=== PATIENT | male | born 1945 | race Caucasian/White ===

== ENCOUNTER 2018-05-23 05:05 | Inpatient (IN) ==
--- NOTE | 2018-05-17 09:30 | PAT Medication Instructions ---
Medication Instructions Date of Service May 17, 2018 Home Medications aspirin [Aspirin Low Dose] 81 mg PO DAILY atenolol 50 mg PO BID calcium carbonate-vitamin D3 1 tab PO DAILY digoxin 250 mcg PO 1800 lisinopril 10 mg PO BID mirtazapine 7.5 mg PO DAILY PRN omega 4-tzr-hec-fish oil [Fish Oil] 1 cap PO DAILY omeprazole 20 mg PO QAM sertraline 100 mg PO BID simvastatin 20 mg PO PM Continue as directed aspirin [Aspirin Low Dose] 81 mg PO DAILY STOP taking 2 weeks before surgery (or as soon as possible if surgery is within 2 weeks) omega 4-xik-yqh-fish oil [Fish Oil] 1 cap PO DAILY DO NOT take the morning of surgery calcium carbonate-vitamin D3 1 tab PO DAILY lisinopril 10 mg PO BID Take morning of surgery With a small sip of water, OTHERWISE NOTHING TO EAT OR DRINK AFTER MIDNIGHT: atenolol 50 mg PO BID mirtazapine 7.5 mg PO DAILY PRN (if needed) omeprazole 20 mg PO QAM sertraline 100 mg PO BID Take evening before surgery atenolol 50 mg PO BID digoxin 250 mcg PO 1800 mirtazapine 7.5 mg PO DAILY PRN (if needed) sertraline 100 mg PO BID simvastatin 20 mg PO PM Other Notes If you have any questions please call us at [phone] or [phone] or [phone] or [phone]
--- NOTE | 2018-05-17 12:11 | Anesthesiology Consultation ---
Date of Service May 17, 2018 Assessment & Plan (1) Encounter for pre-operative examination: - Cardio= 05/11/18= "LOW risk for right hip surgery." - Okay to continue ASA perioperatively per surgeon* Note made of possible severe pulmonary HTN by last echo read - no recent record of right heart cath. Chart Review Chart Review: Acceptable Risk for Surgery and Patient seen in Pre Admission Testing Teaching & Discussion Pre-Anesthesia Teaching/Discussion Notes: Instructed NPO after midnight before surgery,except medications with 15 cc of water. Medication instructions provided according to the PAT guidelines. History Surgery Operation Date: 05/23/18 09:50 Proposed Procedures p Right Total Hip Arthroplasty Uncemented - Jordin Cortez MD Height/Weight Height: 5 ft 10 in Weight: 77.2 kg Allergies Allergy/AdvReac Type Severity Reaction Status Date / Time No Known Allergies Allergy Verified 05/16/18 08:44 Medications Home Medications Medication Instructions Recorded Confirmed Last Taken aspirin [Aspirin Low Dose] 81 mg PO DAILY 05/16/18 05/16/18 Unknown atenolol 50 mg PO BID 05/16/18 05/16/18 Unknown calcium carbonate-vitamin D3 1 tab PO DAILY 05/16/18 05/16/18 Unknown [Calcium 500 + D] digoxin 250 mcg PO 1800 05/16/18 05/16/18 Unknown lisinopril 10 mg PO BID 05/16/18 05/16/18 Unknown mirtazapine 7.5 mg PO DAILY PRN 05/16/18 05/16/18 Unknown omega 0-osj-esc-fish oil [Fish Oil] 1 cap PO DAILY 05/16/18 05/16/18 Unknown omeprazole 20 mg PO QAM 05/16/18 05/16/18 Unknown sertraline 100 mg PO BID 05/16/18 05/16/18 Unknown simvastatin 20 mg PO PM 05/16/18 05/16/18 Unknown Past Medical History Medical History Acid reflux CONTROLLED Aortic aneurysm TAA S/P "PATCH" REPAIR (1997); 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 Atrial fibrillation CHRONIC BPH (benign prostatic hyperplasia) CAD (coronary artery disease) NON-OBSTRUCTIVE Chronic back pain History of blood transfusion 1997 S/P TAA DISSECTION/REPAIR Hyperlipidemia Hypertension Migraine Osteoarthritis Post traumatic stress disorder Pulmonary HTN "SEVERE" 56MMHG PER 2017 ECHO* Past Surgical History Surgical History Dissection of descending aorta S/P "PATCH" REPAIR (1997) History of appendectomy History of cardiac cath 3+ YEARS AGO= NO STENTS History of cataract surgery LEFT History of herniorrhaphy INGUINAL HERNIA REPAIR History of tonsillectomy Past Anesthesia History No Hx of Anesthesia Complications and No Family Hx of Anesthesia Complications History of PONV No Motion Sickness Screening History of Motion Sickness: No Social History Smoking Status: Former smoker tobacco type: cigarettes Smoking cigarettes per day: 1 PPD X 4 YEARS Do You Dip or Chew Tobacco: No Smoking End Date: QUIT 47 YEARS AGO Hx Alcohol Use: No Hx Substance Use: No substance use type: does not use Exercise / Class Metabolic Activity III < 4 Walking/Shop/Light housework (USES CANE PRN) Review of Systems Patient denies chest pain, shortness of breath, cough, wheezing, palpitations. Physical Exam Vital Signs VITALS BP 165/81 P 53 TEMP 98.1 SP02 96%RA RESP 18 PHYSICAL Full neck and c-spine range of motion. Full TMJ range of motion. TMD 3 finger breaths Mallampati Score 1 Dentition: full dentures upper/lower, edentulous Lungs: clear throughout to auscultation Cardiac: irregular rhythm, regular rate, no murmurs noted Spine: normal Carotid arteries: negative bruit Extremities: no edema Testing Electrocardiogram Date: 05/17/18 A. fib with slow ventricular response at 56bpm. Voltage criteria for LVH. NS STA. Chest X-Ray Date: 05/17/18 Findings: + NAD Moderate cardiomegaly. Mild emphysematous change. No acute process. Echocardiogram Date: 12/08/16 LVEF 50-55%. Dyskinetic wall motion in septal segments (normal contractility in remaining clemons). Moderate LAE. Severe JENNIFER. Thickened MV without mitral annular calcification. Thickened AV. Severe pulmonary HTN (RVSP 56mmhg). Aortic root and ascending aorta appear dilated at 4.5cm. Cardiac Catheterization Date: 03/19/15 Normal appearing epicardial coronary arteries with dominant RCA but all vessels appear somewhat tortuous. EF 45%. 3+ AI. Large aortic aneurysm in ascending portion of root. Laboratory Results 05/17/18 12:25 05/17/18 11:25 Blood Type A Positive 05/17/18 12:25 Antibody Screen NEGATIVE 05/17/18 12:25 PT 11.6 Seconds (9.0-12.0) 05/17/18 12:25 INR 1.1 (0.9-1.1) 05/17/18 12:25 APTT 27.3 Seconds (21.0-31.0) 05/17/18 12:25 Hemoglobin A1c 5.8 % (4.5-5.6) H 05/17/18 12:25 Urine Color Yellow 05/17/18 12:25 Urine Appearance Clear (Clear) 05/17/18 12:25 Urine pH 5.0 (4.5-7.5) 05/17/18 12:25 Ur Specific [place] 1.016 (1.000-1.030) 05/17/18 12:25 Urine Protein Negative (Negative) 05/17/18 12:25 Urine Glucose (UA) Negative (Negative) 05/17/18 12:25 Urine Ketones Negative (Negative) 05/17/18 12:25 Urine Nitrite Negative (Negative) 05/17/18 12:25 Ur Leukocyte Esterase Trace (Negative) H 05/17/18 12:25 Urine WBC (Auto) 1-5 /hpf (0-5) 05/17/18 12:25 Urine RBC (Auto) 0-4 /hpf (0-4) 05/17/18 12:25 U Hyaline Cast (Auto) 0 /lpf (0-5) 05/17/18 12:25 U Epithel Cells (Auto) 0-5 /lpf (0-5) 05/17/18 12:25 Urine Bacteria (Auto) Negative (Negative) 05/17/18 12:25
[2018-05-17 12:47] LABS: Basophils # (auto) 0.04 K/uL (0-0.2); Basophils % (auto) 0.5 %; Eosinophils # (auto) 0.03 K/uL (0-0.5); Eosinophils % (auto) 0.4 %; Immature Granulocytes # (auto) 0.02 K/uL (0.00-0.02); Immature Granulocytes % (auto) 0.3 %; Lymphocytes # (auto) 1.76 K/uL (1.2-3.4); Lymphocytes % (auto) 22.9 %; Mean Corpuscular Volume 93.4 fL (80-100); Mean Platelet Volume 9.4 fL (7.4-10.4); Monocytes # (auto) 0.55 K/uL (0.11-0.59); Monocytes % (auto) 7.1 %; Neutrophils % (auto) 68.8 %; Platelet Count 150 K/uL (130-400); RDW Coefficient of Variation 13.1 % (11.5-14.5); RDW Standard Deviation 44.3 fL (36.4-46.3); Red Blood Count 5.03 M/uL (4.7-6.1)
[2018-05-17 12:49] LABS: Appearance Urine Clear (Clear); Bacteria Urine Automated Negative (Negative); Bilirubin Urine Negative (Negative); Blood Urine Negative (Negative); Cast Urine Automated 0 /lpf (0-5); Color Urine Yellow; Epithelial Cell Urine Auto 0-5 /lpf (0-5); Glucose Urine UA Negative (Negative); Ketones Urine Negative (Negative); Leukocyte Esterase Urine Trace (Negative); Nitrite Urine Negative (Negative); Protein Urine Negative (Negative); RBC Urine Automated 0-4 /hpf (0-4); Specific Gravity Urine 1.016 (1.000-1.030); Urobilinogen Urine Negative (Negative)
[2018-05-17 12:58] LABS: INR 1.1 (0.9-1.1); Partial Thromboplastin Time 27.3 Seconds (21.0-31.0); Prothrombin Time 11.6 Seconds (9.0-12.0)
--- NOTE | 2018-05-17 13:17 | XRay Report ---
XR chest Pre-admission PA/Lat CLINICAL HISTORY: pat preoperative COMPARISON STUDY: No previous studies for comparison. FINDINGS: Moderate cardiomegaly. Mild emphysematous change. No focal infiltrate. Diaphragms smooth. IMPRESSION: Moderate cardiomegaly. Mild emphysematous change. No acute process. The above report was generated using voice recognition software. It may contain grammatical, syntax or spelling errors. Electronically signed by: Edouard Soto M.D. 05/17/2018 1:16 PM
[2018-05-17 13:23] LABS: Estimated Average Glucose 120 mg/dl; Hemoglobin A1C 5.8 % (4.5-5.6)
[2018-05-17 13:32] LABS: BUN Creatinine Ratio 11.5 (10-20); Creatinine Clr Calc Pharmacy 65.4 ml/min; Est GFR (African American) 80.5; Est GFR (Non-African American) 69.5; Potassium 4.1 mmol/L (3.5-5.1)
--- NOTE | 2018-05-18 11:23 | History and Physical Report ---
DATE OF ADMISSION: 05/23/2018 CHIEF COMPLAINT: Right hip pain. HISTORY OF PRESENT ILLNESS: The patient is a 72-year-old gentleman with known severe osteoarthritis about his bilateral hips, right worse than left. He has significant pain and disability with activities of daily living. He has pain with prolonged weightbearing and standing activities. He has difficulty with any kneeling, bending, or squatting activities. Due to ongoing pain and disability, he now desires to proceed with right total hip arthroplasty. PAST MEDICAL HISTORY: Hypertension, irregular heartbeat, hypercholesterolemia, osteoarthritis, benign prostatic hypertrophy. PAST SURGICAL HISTORY: Aneurysm repair, appendectomy, hernia repair. MEDICATIONS: Atenolol 50 mg twice daily, calcium plus D twice daily, digoxin 0.25 mg daily, lisinopril 10 mg twice daily, mirtazapine 15 mg half tablet p.o. at bedtime p.r.n., omeprazole 20 mg daily, sertraline HCL 100 mg 2 tablets daily, simvastatin 40 mg at bedtime, aspirin 81 mg daily, fish oil 1000 mg daily. ALLERGIES: No known drug allergies. SOCIAL HISTORY AND REVIEW OF SYSTEMS: Noncontributory. PHYSICAL EXAMINATION: GENERAL: Well-nourished, well-developed elderly male who appears stated age. HEENT: Normocephalic, atraumatic, extraocular movements intact, oropharynx pink and moist. NECK: Supple without adenopathy. LUNGS: Clear to auscultation bilaterally. HEART: Regular rate and rhythm. ABDOMEN: Soft, nontender, nondistended. EXTREMITIES: The upper extremities are within normal limits. The right hip demonstrates significant limitation of range of motion. There is limitation of active and passive internal/external rotation with pain at end range. X-RAYS: X-rays were reviewed. He has severe osteoarthritis about the right hip with complete loss of the joint space. There are large osteophytes about the femoral head and acetabulum. There is deformation of the femoral head. ASSESSMENT: Right hip degenerative joint disease. PLAN: Risks versus benefits were discussed, consent was obtained. We will proceed with right total hip arthroplasty as indicated.
[2018-05-23] MEDS ORDERED: TRANEXAMIC ACID 1,000 MG **IV Pre-op IV SCH (06:00)
[2018-05-23] MEDS ORDERED: FAMOTIDINE 20 MG TAB PO SCH (06:00)
[2018-05-23] MEDS ORDERED: ACETAMINOPHEN 500 MG TAB PO SCH (06:00)
[2018-05-23] MEDS ORDERED: METOCLOPRAMIDE HCL 10 MG TABLET PO SCH (06:00)
[2018-05-23] MEDS ORDERED: LR 500ML BOLUS, THEN 15ML/HR IV SCH (06:00)
[2018-05-23] MEDS ORDERED: CeleBREX 200 MG CAP PO SCH (06:00)
[2018-05-23] MEDS ORDERED: ROPIVACAINE 0.5% HCL/PF 150 MG, BUPIVACAINE 0.5% MPF 30 ML, EPINEPHrine 30MG/30ML (OR U... INFIL SCH (06:00)
[2018-05-23] MEDS ORDERED: CEFAZOLIN 1000MG 1,000 MG/7.5 ML SYR IV SCH (06:00)
[2018-05-23] MEDS ORDERED: GABAPENTIN 300 MG PO SCH (06:00)
[2018-05-23] MEDS ORDERED: dexAMETHasone 4 MG TAB PO SCH (06:00)
[2018-05-23] MEDS ORDERED: BUPIVACAINE 0.5 % 5 MG/1 ML PF 10ML VIAL ONE (06:26)
[2018-05-23] MEDS ORDERED: TRANEXAMIC ACID 1,000 MG **IV Intra-op IV SCH (06:30)
[2018-05-23] MEDS ORDERED: fentaNYL citrate 100 MCG/2 ML VIAL ONE (06:33)
[2018-05-23] MEDS ORDERED: MIDAZOLAM HCL 1 MG/ML 2ML VIAL ONE (06:33)
[2018-05-23] MEDS ORDERED: PROPOFOL IV EMULSION 10 MG/ML 20 ML VIAL IV ONE (06:35)
[2018-05-23] MEDS ORDERED: ONDANSETRON INJ 2 MG/ML 2 ML VIAL ONE (06:35)
[2018-05-23] MEDS ORDERED: LIDOCAINE HCL 2% 2 ML VIAL/AMP(20MG/ML) INFIL ONE (06:35)
[2018-05-23] MEDS ORDERED: ORTHO JOINT ANESTHETIC ONE (06:40)
[2018-05-23] MEDS ORDERED: POVIDONE-IODINE OP SOLN 30 ML BTL ONE (06:41)
[2018-05-23] MEDS ORDERED: BACITRACIN INJ 50,000 UNIT VIAL ONE (06:41)
[2018-05-23] MEDS ORDERED: LABETALOL HCL IV 5 MG/ML 20ML IV PRN (07:35)
[2018-05-23] MEDS ORDERED: ATROPINE SULFATE 0.1 MG/ML 10ML SYR IV PRN (07:35)
[2018-05-23] MEDS ORDERED: HYDROmorphone INJ 1 MG/ML SYRINGE IV PRN (07:35)
[2018-05-23] MEDS ORDERED: fentaNYL citrate 100 MCG/2 ML VIAL IV PRN (07:35)
[2018-05-23] MEDS ORDERED: ONDANSETRON INJ 2 MG/ML 2 ML VIAL IV PRN ×2 (07:35→11:12)
[2018-05-23] MEDS ORDERED: ePHEDrine sulfate 50 MG/ML AMP IV PRN (07:35)
[2018-05-23] MEDS ORDERED: PHENYLEPHRINE 100MCG/ML 5ML SYR IV PRN (07:35)
--- NOTE | 2018-05-23 07:48 | History & Physical Bridge Note ---
Date of Service May 23, 2018 History & Physical Bridge Note I have examined the patient, reviewed the History & Physical and in the interval since the performance of the History & Physical I have noted the following changes of clinical significance: no changes noted
[2018-05-23] MEDS ORDERED: ePHEDrine sulfate 50 MG/ML SYR ONE (08:29)
--- NOTE | 2018-05-23 08:52 | Operative Report ---
Post Operative Report Pre & Post Diagnosis Operation Date: 05/23/18 07:00 Pre-Op Diagnosis: Right Hip Degenerative Joint Disease Post-Op Diagnosis: Right Hip Degenerative Joint Disease Procedure Operation Date: 05/23/18 07:00 Actual Procedures p Right Total Hip Arthroplasty--Uncemented(Right) - Jordin Cortez MD Surgeon Jordin Cortez MD Price Clerk Becky Estimated Blood Loss 100 Findings Consistent with Post-Op Diagnosis Specimens Femoral head Anesthesia Type Spinal Complications none Disposition Accompanied Patient To Recovery: No Disposition: Recovery Room Description of Procedure Patient was placed in the left lateral decubitus position the right hip was prepped and draped in the usual sterile manner. A Lenora Langenbeck incision was made subcutaneous tissue was sharply dissected electrocautery was used for h emostasis. Fascia was incised throughout the length of the wound and the short external rotators were divided from the posterior aspect of the femur using electrocautery. A T capsulotomy was made and the hip was dislocated severely arthritic nature of the femoral head was noted. The femoral head was osteotomized at the appropriate level and removed. Attention was then turned to the acetabulum where the labrum was removed and sequential reamings were carried out to a size 58 which gave good fit and exposure of subchondral bone. Large anterior osteophyte was noted. The acetabulum was impacted in position was held using a single cancellous bone screw. The acetabular liner was placed in the anterior osteophyte next attention was turned to the proximal femur a box osteotome was used to get access to potential aspirins were carried up to size 4 and a trial reduction was carried out in a +2.5 mm femoral head was chosen. Trial was removed final stem was impacted in position the hip was located the piriformis repaired to the greater trochanter using #1 Vicryl Hemovac was placed periarticular joint mix was injected Betadine soap was utilized after final irrigation closure using #1 Vicryl subcutaneous tissue closed using 0 Dexon skin of skin was closed was applied. Sterile dressing of Adaptic 4 x 4's sterile verbal the length is applied. The patient tolerated the procedure well. Mr. Murillo was utilized all portions of the procedure including positioning prepping draping surgical incision assist and wound closure and dressing application. I attest to the content of the Intraoperative Record and any orders documented therein. Any exceptions are noted below.
--- NOTE | 2018-05-23 10:00 | Anesthesiology Progress Note ---
Date of Service May 23, 2018 Anesthesia Post Procedure Vital Signs Vital Signs: Temp Pulse Pulse Resp BP BP Pulse Ox 05/23/18 09:55 72 24 164/57 H 141/67 H 95 05/23/18 09:45 67 16 160/54 H 136/69 95 05/23/18 09:35 66 23 156/53 H 126/79 97 05/23/18 09:25 61 20 145/51 H 131/63 96 05/23/18 09:15 66 20 157/56 H 131/66 98 05/23/18 09:07 36.4 C L 65 21 117/55 L 96 05/23/18 05:43 36.7 C 64 20 180/87 H 98 Pain Intensity Right Hip: Pain Intensity: 0 Notes Mental Status: alert / awake / arousable Patient Amnestic to Procedure: Yes Nausea / Vomiting: adequately controlled Pain: adequately controlled Airway Patency, RR, SpO2: stable & adequate BP & HR: stable & adequate Hydration State: stable & adequate Neuraxial Anesthesia: was administered and sensory block is resolving Anesthetic Complications: no major complications apparent and Pt Satisfied with anesthetic care Notes: The patient is doing well. He has been hemodynamically stable.
--- NOTE | 2018-05-23 10:28 | XRay Report ---
XR hip 1V RT w pelvis HISTORY: 72 years-old Male post-op TEVIN right hip total joint arthroplasty. History of degenerative j oint disease COMPARISON: None available TECHNIQUE: 3 views of the right hip FINDINGS: Right hip total joint arthroplasty. No acute fracture. Surgical drainage catheter and expected postsu rgical soft tissue swelling and deep tissue air about the right hip. There are 2 crosstable lateral v iews conducted. The first image demonstrates slight anterior subluxation of the femoral head componen t. The second image demonstrates apparent satisfactory alignment. The acetabular cup appears slightly tilted anteriorly which may be accentuated by positioning. Severe left hip posterior arthritis. IMPRESSION: 1. Right hip total joint arthroplasty without acute fracture. On the crosstable lateral view there is suggested mild anterior subluxation of the femoral head component. Correlate clinically. 2. Severe left hip osteoarthritis. The above report was generated using voice recognition software. It may contain grammatical, syntax o r spelling errors. Electronically signed by: Baudilio Fuller M.D. 05/23/2018 10:27 AM
[2018-05-23] MEDS ORDERED: OXYCODONE HCL IR 5 MG TAB (IMMEDIATE RELEASE) PO PRN (11:12)
[2018-05-23] MEDS ORDERED: NALOXONE HCL 0.4 MG/1 ML VIAL/CARP IV PRN (11:12)
[2018-05-23] MEDS ORDERED: TAMSULOSIN HCL 0.4 MG CAP PO PRN (11:12)
[2018-05-23] MEDS ORDERED: BISACODYL 10 MG SUPP PR PRN (11:12)
[2018-05-23] MEDS ORDERED: METOCLOPRAMIDE HCL INJ 5 MG/ML 2 ML VIAL IV PRN (11:12)
[2018-05-23] MEDS ORDERED: HYDROmorphone INJ 0.5 MG/0.5 ML SYR IV PRN (11:12)
[2018-05-23] MEDS ORDERED: MAGNESIUM HYDROXIDE SUSP 30 ML UDC PO PRN (11:12)
[2018-05-23] MEDS: KETOROLAC TROMETHAMINE 15 MG/ML VIAL IV SCH ×3 (13:36→23:47)
[2018-05-23] MEDS: ACETAMINOPHEN 500 MG TAB PO SCH ×2 (13:37→21:21)
[2018-05-23] MEDS: DIGOXIN 0.25 MG TAB PO SCH (15:38)
[2018-05-23] MEDS: CEFAZOLIN 1000MG 1,000 MG/7.5 ML SYR IV SCH ×2 (15:38→23:47)
[2018-05-23] MEDS: FERROUS GLUCONATE 324 MG TAB PO SCH (18:06)
[2018-05-23] MEDS: ASCORBIC ACID 500 MG TAB PO SCH (18:07)
[2018-05-23] MEDS: SODIUM CHLORIDE 0.9% 1000ML 1,000 ML IV SCH (19:49)
[2018-05-23] MEDS: LISINOPRIL 10 MG TAB PO SCH (20:44)
[2018-05-23] MEDS: SENNA 8.6 MG TAB PO SCH (20:45)
[2018-05-23] MEDS: DOCUSATE SODIUM 100 MG CAP PO SCH (20:45)
[2018-05-23] MEDS: SIMVASTATIN 40 MG TAB PO SCH (20:45)
[2018-05-23] MEDS: SERTRALINE HCL 100 MG TABLET PO SCH (20:45)
[2018-05-23] MEDS: ATENOLOL 50 MG TABLET PO SCH (20:45)
[2018-05-23] MEDS: ASPIRIN 81 MG ECTAB PO SCH (20:45)
[2018-05-24] MEDS: SODIUM CHLORIDE 0.9% 1000ML 1,000 ML IV SCH (05:56)
[2018-05-24] MEDS: ACETAMINOPHEN 500 MG TAB PO SCH ×3 (06:05→22:25)
[2018-05-24] MEDS: KETOROLAC TROMETHAMINE 15 MG/ML VIAL IV SCH (06:06)
[2018-05-24 06:27] LABS: Hematocrit (blood only) 29.8 % (42-52); Hemoglobin 10.1 g/dL (14.0-18.0); Immature Granulocytes # (auto) 0.03 K/uL (0.00-0.02); Immature Granulocytes % (auto) 0.2 %; Lymphocytes # (auto) 1.72 K/uL (1.2-3.4); Lymphocytes % (auto) 14.1 %; Mean Corpuscular Hgb Conc 33.9 g/dL (32-36); Mean Corpuscular Volume 91.4 fL (80-100); Mean Platelet Volume 8.8 fL (7.4-10.4); Monocytes # (auto) 1.06 K/uL (0.11-0.59); Monocytes % (auto) 8.7 %; Neutrophils # (auto) 9.37 K/uL (1.4-6.5); Platelet Count 133 K/uL (130-400); RDW Coefficient of Variation 12.9 % (11.5-14.5); RDW Standard Deviation 43.4 fL (36.4-46.3); Red Blood Count 3.26 M/uL (4.7-6.1); White Blood Count 12.18 K/uL (4.8-10.8)
[2018-05-24 07:04] LABS: BUN Creatinine Ratio 25.2 (10-20); Calcium 7.6 mg/dl (8.5-10.1); Creatinine Clr Calc Pharmacy 52.6 ml/min; Est GFR (African American) 61.9; Est GFR (Non-African American) 53.4; Potassium 4.3 mmol/L (3.5-5.1)
--- NOTE | 2018-05-24 07:45 | Orthopedic Progress Note ---
Date of Service May 24, 2018 Assessment & Plan (1) Status post right hip replacement: 72 yo male stable POD #1 s/p right TEVIN 1. Med management 2. DVT prophylaxis- ASA, SCDs 3. PT/OT 4. D/C planning- home w/ HH Subjective Pt resting in bed, pain controlled, denies complaints Physical Exam Vital Signs (Past 24 Hours): Last Vital Signs Temp 37.1 C 05/24/18 06:53 Pulse 65 05/24/18 06:53 Resp 18 05/24/18 06:53 BP 157/67 H 05/24/18 06:53 Pulse Ox 98 05/24/18 06:53 Physical Exam: Toes mobile, N/V/I, dressing and drain in place Results & Data Laboratory Results 05/24/18 05/24/18 05/24/18 Range/Units 06:09 06:09 06:09 WBC 12.18 H (4.8-10.8) K/uL RBC 3.26 L (4.7-6.1) M/uL Hgb 10.1 L (14.0-18.0) g/dL Hct 29.8 L (42-52) % MCV 91.4 (80-100) fL MCH 31.0 (25-34) pg MCHC 33.9 (32-36) g/dL RDW Std Deviation 43.4 (36.4-46.3) fL RDW Coeff of Davey 12.9 (11.5-14.5) % Plt Count 133 (130-400) K/uL MPV 8.8 (7.4-10.4) fL Immature Gran % (Auto) 0.2 % Neut % (Auto) 77.0 % Lymph % (Auto) 14.1 % [place] % (Auto) 8.7 % Eos % (Auto) 0.0 % Baso % (Auto) 0.0 % Immature Gran # (Auto) 0.03 H (0.00-0.02) K/uL Neut # (Auto) 9.37 H (1.4-6.5) K/uL Lymph # (Auto) 1.72 (1.2-3.4) K/uL [place] # (Auto) 1.06 H (0.11-0.59) K/uL Eos # (Auto) 0.00 (0-0.5) K/uL Baso # (Auto) 0.00 (0-0.2) K/uL Sodium 138 (136-145) mmol/L Potassium 4.3 (3.5-5.1) mmol/L Chloride 107 (98-107) mmol/L Carbon Dioxide 23 (21-32) mmol/L Anion Gap 8.0 (3-11) BUN 34 H (7-18) mg/dl Creatinine 1.33 (0.6-1.4) mg/dl Est Cr Clr Drug Dosing 52.6 ml/min Est GFR ( Amer) 61.9 Est GFR (Non-Af Amer) 53.4 BUN/Creatinine Ratio 25.2 H (10-20) Glucose 119 H (70-99) mg/dl Calcium 7.6 L (8.5-10.1) mg/dl Hepatitis C Ab Screen Pending
--- NOTE | 2018-05-24 07:55 | Anesthesiology Progress Note ---
Date of Service May 24, 2018 Anesthesia Post Procedure Vital Signs Vital Signs: Temp Pulse Pulse Pulse Pulse Resp BP 05/24/18 06:53 37.1 C 65 18 05/24/18 03:28 36.7 C 71 16 05/23/18 23:37 36.7 C 61 15 05/23/18 22:47 36.9 C 65 16 05/23/18 20:41 99 H 136/75 05/23/18 19:30 36.6 C 79 16 05/23/18 15:51 36.7 C 74 18 05/23/18 15:38 68 05/23/18 13:40 63 18 05/23/18 12:44 37.1 C 74 18 05/23/18 11:52 66 18 05/23/18 11:17 36.6 C 62 18 05/23/18 10:50 36.8 C 63 16 05/23/18 10:35 68 19 05/23/18 10:25 66 17 05/23/18 10:15 57 L 16 05/23/18 10:05 36.4 C L 63 22 05/23/18 09:55 72 24 05/23/18 09:45 67 16 05/23/18 09:35 66 23 05/23/18 09:25 61 20 05/23/18 09:15 66 20 05/23/18 09:07 36.4 C L 65 21 BP BP Pulse Ox 05/24/18 06:53 157/67 H 98 05/24/18 03:28 131/58 L 98 05/23/18 23:37 96/52 L 98 05/23/18 22:47 117/68 97 05/23/18 20:41 05/23/18 19:30 122/71 97 05/23/18 15:51 137/69 96 05/23/18 15:38 05/23/18 13:40 117/57 L 97 05/23/18 12:44 112/67 94 05/23/18 11:52 120/66 96 05/23/18 11:17 142/57 H 95 05/23/18 10:50 130/72 96 05/23/18 10:35 132/63 95 05/23/18 10:25 157/51 H 139/66 92 05/23/18 10:15 154/56 H 131/60 95 05/23/18 10:05 146/63 H 146/53 H 95 05/23/18 09:55 164/57 H 141/67 H 95 05/23/18 09:45 160/54 H 136/69 95 05/23/18 09:35 156/53 H 126/79 97 05/23/18 09:25 145/51 H 131/63 96 05/23/18 09:15 157/56 H 131/66 98 05/23/18 09:07 117/55 L 96 Pain Intensity Right Hip: Pain Intensity: 0 Notes Mental Status: alert / awake / arousable and participated in evaluation Patient Amnestic to Procedure: Yes Nausea / Vomiting: adequately controlled Pain: adequately controlled Airway Patency, RR, SpO2: stable & adequate BP & HR: stable & adequate Hydration State: stable & adequate Neuraxial Anesthesia: was administered and sensory block resolved Anesthetic Complications: no major complications apparent and Pt Satisfied with anesthetic care
[2018-05-24] MEDS ORDERED: dexAMETHasone 10 MG in SYRINGE 0 ML IV SCH (08:00)
[2018-05-24] MEDS: ASCORBIC ACID 500 MG TAB PO SCH ×2 (08:28→16:57)
[2018-05-24] MEDS: CALCIUM 600MG + VIT D 400 IU TAB PO SCH (08:28)
[2018-05-24] MEDS: DOCUSATE SODIUM 100 MG CAP PO SCH ×2 (08:28→21:22)
[2018-05-24] MEDS: FERROUS GLUCONATE 324 MG TAB PO SCH ×2 (08:28→16:57)
[2018-05-24] MEDS: SERTRALINE HCL 100 MG TABLET PO SCH ×2 (08:29→22:24)
[2018-05-24] MEDS: ASPIRIN 81 MG ECTAB PO SCH ×2 (08:29→21:28)
[2018-05-24] MEDS: ATENOLOL 50 MG TABLET PO SCH ×2 (08:29→21:28)
[2018-05-24] MEDS: LISINOPRIL 10 MG TAB PO SCH ×2 (08:29→21:28)
[2018-05-24] MEDS: MULTIVITAMIN TAB PO SCH (08:29)
[2018-05-24] MEDS: ALUMINUM/MAGNESIUM SUSP 30 ML UDC PO PRN ×2 (11:08→18:30)
[2018-05-24] MEDS: DIGOXIN 0.25 MG TAB PO SCH (15:37)
[2018-05-24] MEDS: SENNA 8.6 MG TAB PO SCH (21:22)
[2018-05-24] MEDS: SIMVASTATIN 40 MG TAB PO SCH (22:24)
[2018-05-25] MEDS: ACETAMINOPHEN 500 MG TAB PO SCH (05:55)
[2018-05-25] MEDS: LISINOPRIL 10 MG TAB PO SCH (08:46)
[2018-05-25] MEDS: DOCUSATE SODIUM 100 MG CAP PO SCH (08:46)
[2018-05-25] MEDS: ASPIRIN 81 MG ECTAB PO SCH (08:46)
[2018-05-25] MEDS: ATENOLOL 50 MG TABLET PO SCH (08:46)
[2018-05-25] MEDS: CALCIUM 600MG + VIT D 400 IU TAB PO SCH (08:46)
[2018-05-25] MEDS: SERTRALINE HCL 100 MG TABLET PO SCH (08:46)
[2018-05-25] MEDS: MULTIVITAMIN TAB PO SCH (08:46)
[2018-05-25] MEDS: FERROUS GLUCONATE 324 MG TAB PO SCH (08:47)
[2018-05-25] MEDS: ASCORBIC ACID 500 MG TAB PO SCH (08:47)
--- NOTE | 2018-05-25 10:40 | Orthopedic Progress Note ---
Date of Service May 25, 2018 Assessment & Plan (1) Status post right hip replacement: 72 yo male stable POD #2 s/p right TEVIN 1. Med management 2. DVT prophylaxis- ASA, SCDs 3. PT/OT 4. D/C planning- home w/ HH today Subjective Patient is postop day 2 status post right total hip arthroplasty. He is sitting at the chair at the bedside. He has no complaints. Pain is controlled. He states that he has his normal shortness of breath due to heart valve issues. This has not worsened during his stay. He is hoping to go home today. Physical Exam Vital Signs (Past 24 Hours): Last Vital Signs Temp 37.3 C 05/25/18 06:44 Pulse 62 05/25/18 06:44 Resp 18 05/25/18 06:44 BP 144/70 H 05/25/18 06:44 Pulse Ox 98 05/25/18 06:44 Physical Exam: Dressings are clean dry and intact. Calves are soft nontender, neurovascular is intact, toes are mobile, hip is located.
--- NOTE | 2018-05-27 09:34 | Discharge Summary ---
CHIEF COMPLAINT: Right hip pain. Please see complete history and physical examination. HOSPITAL COURSE: The patient underwent right total hip arthroplasty without complication. He tolerated the procedure well and discharged to recovery room in stable condition. His postoperative course was relatively uneventful. His postoperative pain was reasonably well controlled with a combination of spinal anesthesia, intraoperative joint injection, IV, and oral pain medications. He was started on aspirin for DVT prophylaxis. He also utilized NEDRA stockings and SCDs for additional prophylaxis. His H&H was stable and did not require transfusion. His surgical drain and dressing were discontinued prior to discharge. A new surgical dressing was applied and will remain in place for approximately 7 days postoperative. He tolerated postoperative physical therapy reasonably well. He was ambulating and transferring appropriately. Observing all total hip precautions. He was discharged home on postoperative day 2. He will continue his physical therapy at home. He will continue his aspirin for DVT prophylaxis and follow up in our office in approximately 10-14 days for his initial postop evaluation.
== END 2018-05-25 13:08 | disposition home health service (06) | DRG 470 ==
LOC: ASU 05:05 → 3E 09:17